=== PATIENT | female | born 1995 | race African-American/Black ===

== ENCOUNTER 2022-07-22 20:30 | Emergency (ER) | payer OTHER ==
[2022-07-22 21:12] VITALS: BP 134/87; PULSE 92; RESP 16; TEMP 99.6; BMI 21.2
[2022-07-22] MEDS ORDERED: SULFAMETHOXAZOLE/TRIMETHOPRIM 800MG/160MG D.S. TABLET PO ONE (23:34)
[2022-07-22] MEDS ORDERED: SULFAMETHOXAZOLE/TRIMETHOPRIM 800MG/160MG D.S. TABLET ONE (23:37)
== END 2022-07-22 23:53 | disposition home or self-care (01) ==
LOC: FER 20:30
DX: L05.91 Pilonidal cyst without abscess (principal)
CPT/HCPCS: 72192-TC; 81025; 99284-25

== ENCOUNTER 2023-10-25 20:40 | Emergency (ER) | payer OTHER ==
[2023-10-25 21:07] VITALS: BP 115/64; PULSE 93; RESP 18; TEMP 98.6; BMI 23.4
[2023-10-25] MEDS ORDERED: ONDANSETRON 4 MG/2 ML VIAL IVPB ONE (21:15)
[2023-10-25] MEDS ORDERED: SODIUM CHLORIDE 1,000 ML IV ONE (21:15)
[2023-10-25] MEDS ORDERED: ONDANSETRON 4 MG/2 ML VIAL ONE (21:18)
[2023-10-25 21:58] LABS: HEMOGLOBIN 10.1 G/dL (10.7-15.3); MCH 21.4 pg (25.7-33.7); MCHC 31.7 g/dl (32.0-36.0); MEAN CELL VOLUME 67.6 fl (80-96); MEAN PLT VOLUME 9.2 fl (7.5-11.1); PLATELET COUNT 403.3 10^3/uL (134-434); RBC 4.73 10^6/uL (3.60-5.2); RDW 23.6 % (11.6-15.6); WHITE BLOOD COUNT 12.7 10^3/uL (4.0-10.8)
[2023-10-25 22:23] LABS: ALBUMIN 4.5 g/dl (3.4-5.0); BILIRUBIN,TOTAL 0.4 mg/dl (0.2-1); CALCIUM 9.2 mg/dl (8.5-10.1); CREATININE 0.6 mg/dl (0.6-1.3); POTASSIUM 4.4 mmol/L (3.5-5.1); TOT PROT 7.5 g/dl (6.4-8.2)
== END 2023-10-25 22:35 | disposition home or self-care (01) ==
LOC: FER 20:40
PROC: 3E033GC Introduction of Other Therapeutic Substance into Peripheral Vein, Percutaneous Approach (ICD-10-PCS; principal; 2023-10-25)
DX: O21.0 Mild hyperemesis gravidarum (principal); O26.891 Other specified pregnancy related conditions, first trimester; R42 Dizziness and giddiness; R00.2 Palpitations; Z3A.01 Less than 8 weeks gestation of pregnancy
CPT/HCPCS: 36415; 80053; 81003; 84703; 85027; 99284-25

== ENCOUNTER 2023-11-26 03:11 | Emergency (ER) | payer OTHER ==
[2023-11-26 03:28] VITALS: BP 113/79; PULSE 146; RESP 18; TEMP 99.9; BMI 22.7
== END 2023-11-26 03:59 | disposition home or self-care (01) ==
LOC: FER 03:11
DX: O99.891 Other specified diseases and conditions complicating pregnancy (principal); M54.50 Low back pain, unspecified; O99.719 Diseases of the skin and subcutaneous tissue complicating pregnancy, unspecified trimester; L05.01 Pilonidal cyst with abscess; Z3A.00 Weeks of gestation of pregnancy not specified
CPT/HCPCS: 99283-25; 99284-25

== ENCOUNTER 2024-01-25 23:09 | Emergency (ER) | payer OTHER ==
[2024-01-25 23:26] VITALS: BP 131/82; PULSE 108; RESP 18; TEMP 99; BMI 25.0
== END 2024-01-25 23:43 | disposition home or self-care (01) ==
LOC: FER 23:09
DX: L05.01 Pilonidal cyst with abscess (principal)
CPT/HCPCS: 99283-25

== ENCOUNTER 2024-06-12 01:45 | Inpatient (IN) | payer OTHER ==
[2024-06-12] MEDS: ELECTROLYTE-148 SOLN 1,000 ML IV SCH (02:30)
[2024-06-12] MEDS ORDERED: ELECTROLYTE-148 SOLN 1,000 ML IV SCH (03:00)
[2024-06-12 03:03] LABS: BASO % 0.2 % (0-2.0); EOS % 1.2 % (0-4.5); HEMATOCRIT 33.5 % (32.4-45.2); HEMOGLOBIN 11.1 GM/dL (10.7-15.3); LYMPH % 13.3 % (8-40); MCH 25.9 pg (25.7-33.7); MEAN CELL VOLUME 78.4 fl (80-96); MEAN PLT VOLUME 9.4 fl (7.5-11.1); MONO % 5.2 % (3.8-10.2); NEUT % 80.1 % (42.8-82.8); PLATELET COUNT 241 10^3/uL (134-434); RBC 4.27 M/mm3 (3.60-5.2); RDW 17.4 % (11.6-15.6); WHITE BLOOD COUNT 13.3 K/mm3 (4.0-10.0)
[2024-06-12 03:10] LABS: INR 0.82 (0.83-1.09); PROTHROMBIN TIME (PATIENT) 9.5 SEC (9.7-13.0)
[2024-06-12 03:13] LABS: ACTIVATED PTT 29.8 SECONDS (25.2-36.5)
[2024-06-12 03:19] VITALS: BMI 32.2
[2024-06-12 03:19] LABS: POTASSIUM 4.2 mmol/L (3.5-5.1)
[2024-06-12 03:21] LABS: CALCIUM 9.2 mg/dL (8.5-10.1)
[2024-06-12 03:22] LABS: ALBUMIN 2.8 g/dl (3.4-5.0); BLOOD UREA NITROGEN 7.1 mg/dL (7-18)
[2024-06-12 03:25] LABS: CREATININE 0.6 mg/dL (0.55-1.3)
[2024-06-12 03:26] LABS: BILIRUBIN,TOTAL 0.2 mg/dL (0.2-1)
[2024-06-12 03:27] LABS: TOT PROT 6.6 g/dl (6.4-8.2)
[2024-06-12] MEDS ORDERED: FENTANYL/BUPIVACAINE/NS/PF - PCEA - 50 ML DISP.SYRIN EP ONE ×4 (03:31→15:21)
[2024-06-12] MEDS: FENTANYL/BUPIVACAINE/NS/PF - PCEA - 50 ML DISP.SYRIN EP SCH (04:15)
[2024-06-12] MEDS ORDERED: NALOXONE HCL 0.4 MG/ML VIAL IVPUSH PRN (04:32)
[2024-06-12] MEDS ORDERED: OXYTOCIN 30 UNITS in 0.9% NS 30 UNIT/500 ML INFUS.BAG IVPB ONE (13:28)
[2024-06-12] MEDS: OXYTOCIN 30 UNITS in 0.9% NS 30 UNIT/500 ML INFUS.BAG IVPB SCH (13:30)
[2024-06-12] MEDS ORDERED: LIDOCAINE HCL 1% PRESERVATIVE FREE - 30ML VIAL ONE (18:38)
[2024-06-12] MEDS ORDERED: OXYTOCIN 20 UNITS in 0.9% NS 20 UNIT/1,000 ML INFUS.BAG IV ONE (18:45)
[2024-06-12] MEDS: OXYTOCIN 20 UNITS in 0.9% NS 20 UNIT/1,000 ML INFUS.BAG IV SCH (19:00)
[2024-06-12 19:17] LABS: CORD BASE EXCESS -1.5 mmol/L (0-2); CORD HCO3 23.4 mmHg (20-29); CORD PCO2 40.5 mmHg (30-78); CORD pH 7.38 (7.14-7.44)
[2024-06-12] MEDS ORDERED: METHYLERGONOVINE MALEATE 0.2 MG/1 ML AMP IM PRN (19:31)
[2024-06-12] MEDS ORDERED: WITCH HAZEL 50% (TUCKS) 40 PAD/JAR PAD TP PRN (19:31)
[2024-06-12] MEDS ORDERED: BISACODYL 10 MG SUPP.RECT RC PRN (19:31)
[2024-06-12] MEDS ORDERED: BENZOCAINE 28 GM HEMORRHOIDAL OINTMENT TP PRN (19:31)
[2024-06-13 09:41] LABS: BASO % 0.5 % (0-2.0); EOS % 0.8 % (0-4.5); HEMATOCRIT 24.3 % (32.4-45.2); HEMOGLOBIN 7.7 GM/dL (10.7-15.3); MCH 25.6 pg (25.7-33.7); MCHC 31.6 g/dl (32.0-36.0); MEAN CELL VOLUME 81.1 fl (80-96); MEAN PLT VOLUME 10.3 fl (7.5-11.1); MONO % 5.7 % (3.8-10.2); PLATELET COUNT 205 10^3/uL (134-434); RBC 2.99 M/mm3 (3.60-5.2); RDW 17.6 % (11.6-15.6); WHITE BLOOD COUNT 16.1 K/mm3 (4.0-10.0)
[2024-06-13] MEDS: IBUPROFEN 600 MG TABLET (FP) PO PRN (11:12)
[2024-06-13] MEDS: IRON SUCROSE INJECTION 300 MG in SODIUM CHLORIDE 235 ML IVPB ONE (16:24)
[2024-06-13] MEDS: ACETAMINOPHEN 325 MG TABLET (FP) PO PRN (18:40)
[2024-06-13] MEDS: SENNOSIDES/DOCUSATE COMBO (SENNA PLUS) TABLET (UD) PO PRN (22:21)
[2024-06-14 07:35] LABS: HEMATOCRIT 21.7 % (32.4-45.2); MCH 25.7 pg (25.7-33.7); MCHC 31.7 g/dl (32.0-36.0); MEAN CELL VOLUME 81.2 fl (80-96); MEAN PLT VOLUME 9.8 fl (7.5-11.1); PLATELET COUNT 202 10^3/uL (134-434); RBC 2.68 M/mm3 (3.60-5.2); RDW 17.9 % (11.6-15.6); WHITE BLOOD COUNT 13.9 K/mm3 (4.0-10.0)
[2024-06-14 08:14] LABS: HEMOGLOBIN 6.9 GM/dL (10.7-15.3)
[2024-06-14] MEDS: FERROUS SO4 325 MG TABLET (FP) PO SCH (10:08)
[2024-06-14] MEDS: PRENATAL VITAMINS W/ FOLIC ACID TABLET (FP) PO SCH (10:08)
[2024-06-15 07:31] LABS: HEMATOCRIT 23.9 % (32.4-45.2); HEMOGLOBIN 7.7 GM/dL (10.7-15.3); MCH 25.9 pg (25.7-33.7); MEAN CELL VOLUME 81.1 fl (80-96); MEAN PLT VOLUME 9.7 fl (7.5-11.1); PLATELET COUNT 242 10^3/uL (134-434); RBC 2.95 M/mm3 (3.60-5.2); RDW 17.6 % (11.6-15.6); WHITE BLOOD COUNT 15.4 K/mm3 (4.0-10.0)
[2024-06-15 10:15] LABS: ANISOCYTOSIS 0; HELMET CELLS 0; HOWELL-JOLLY BODIES 0; MACROCYTOSIS 0; OVALOCYTE 0; ROULEAU 0; SICKELED CELLS 0; TARGET CELLS 0; TEAR DROP CELLS 0; TOXIC GRANULATION 0
[2024-06-15 15:11] VITALS: RESP 18
[2024-06-15] MEDS: BENZOCAINE 20% 57 GM BOTTLE TP PRN (21:50)
[2024-06-16 07:43] LABS: HEMATOCRIT 25.3 % (32.4-45.2); MCH 26.1 pg (25.7-33.7); MCHC 31.8 g/dl (32.0-36.0); MEAN CELL VOLUME 82.3 fl (80-96); MEAN PLT VOLUME 9.7 fl (7.5-11.1); PLATELET COUNT 296 10^3/uL (134-434); RBC 3.07 M/mm3 (3.60-5.2); RDW 17.9 % (11.6-15.6)
[2024-06-16 08:56] LABS: ANISOCYTOSIS 0; MACROCYTOSIS 0
[2024-06-16 08:57] LABS: PLATELET ESTIMATE ADEQUATE
[2024-06-16 10:28] VITALS: BP 118/69; TEMP 98.8
[2024-06-16 11:27] VITALS: PULSE 116
== END 2024-06-16 14:40 | disposition home or self-care (01) | DRG 807 ==
LOC: JLDR 01:45 → J3W 09:20
PROVIDERS: ADMIT Obstetrics & Gynecology; ATTEND Obstetrics & Gynecology
PROC: 10E0XZZ Delivery of Products of Conception, External Approach (ICD-10-PCS; principal; 2024-06-12)
DX: O99.02 Anemia complicating childbirth (principal); Z37.0 Single live birth; D64.9 Anemia, unspecified; O70.1 Second degree perineal laceration during delivery; Z3A.39 39 weeks gestation of pregnancy
CPT/HCPCS: 36415; 36600; 59409; 80053; 82803; 85025; 85027; 85610; 85730; 86780; 86850; 86900; 86901; J1756

== ENCOUNTER 2024-06-21 22:20 | Emergency (ER) | payer OTHER ==
[2024-06-21 22:38] VITALS: BMI 30.7
[2024-06-22] MEDS ORDERED: METOCLOPRAMIDE HCL INJECTION 10 MG/2 ML VIAL ONE (00:28)
[2024-06-22] MEDS ORDERED: ACETAMINOPHEN INJECTION 100 ML ONE (00:43)
[2024-06-22] MEDS: ACETAMINOPHEN 1000 MG/100 ML BAG IVPB ONE (00:52)
[2024-06-22] MEDS: METOCLOPRAMIDE HCL INJECTION 10 MG/2 ML VIAL IVPB ONE (00:52)
[2024-06-22 01:00] LABS: EPI CELLS >36 /uL (0-25.1); HYALINE CASTS 49 /uL (0-3.1); PH,URINE 7.5 (5.0-8.0); URINE APPEARANCE TURBID; URINE BACTERIA 200 /uL (0-1359); URINE BILIRUBIN NEGATIVE (NEGATIVE); URINE COLOR ORANGE; URINE GLUCOSE (UA) NEGATIVE (NEGATIVE); URINE KETONE NEGATIVE (NEGATIVE); URINE LEUK ESTERASE 3+ (NEGATIVE); URINE NITRITE NEGATIVE (NEGATIVE); URINE PROTEIN 2+ (NEGATIVE); URINE RBC 315 /uL (0-23.9); URINE UROBILINOGEN 0.2 mg/dL (0.2-1.0); URINE WBC 3554 /uL (0-25.8)
[2024-06-22 01:02] LABS: BASO % 0.5 % (0-2.0); EOS % 3.2 % (0-4.5); HEMATOCRIT 30.2 % (32.4-45.2); HEMOGLOBIN 9.4 GM/dL (10.7-15.3); LYMPH % 19.3 % (8-40); MCH 25.8 pg (25.7-33.7); MCHC 31.2 g/dl (32.0-36.0); MEAN CELL VOLUME 82.7 fl (80-96); MEAN PLT VOLUME 8.1 fl (7.5-11.1); MONO % 5.5 % (3.8-10.2); NEUT % 71.5 % (42.8-82.8); PLATELET COUNT 570 10^3/uL (134-434); RBC 3.66 M/mm3 (3.60-5.2); RDW 17.9 % (11.6-15.6); WHITE BLOOD COUNT 14.6 K/mm3 (4.0-10.0)
[2024-06-22 01:03] LABS: INR 0.99 (0.83-1.09); PROTHROMBIN TIME (PATIENT) 11.4 SEC (9.7-13.0)
[2024-06-22 01:05] LABS: ACTIVATED PTT 32.7 SECONDS (25.2-36.5)
[2024-06-22 01:23] LABS: POTASSIUM 4.8 mmol/L (3.5-5.1)
[2024-06-22 01:25] LABS: ALBUMIN 3.3 g/dl (3.4-5.0); CALCIUM 9.5 mg/dL (8.5-10.1)
[2024-06-22 01:26] LABS: BLOOD UREA NITROGEN 11.8 mg/dL (7-18)
[2024-06-22 01:28] LABS: CREATININE 0.8 mg/dL (0.55-1.3)
[2024-06-22 01:30] LABS: BILIRUBIN,TOTAL 0.2 mg/dL (0.2-1); TOT PROT 7.5 g/dl (6.4-8.2)
[2024-06-22 02:35] VITALS: BP 130/71; PULSE 96; RESP 20; TEMP 98.5
== END 2024-06-22 02:36 | disposition home or self-care (01) ==
LOC: JER 22:20
PROC: 3E033NZ Introduction of Analgesics, Hypnotics, Sedatives into Peripheral Vein, Percutaneous Approach (ICD-10-PCS; principal; 2024-06-22)
DX: R51.9 Headache, unspecified (principal); N39.0 Urinary tract infection, site not specified; R80.9 Proteinuria, unspecified
CPT/HCPCS: 36415; 80053; 81003; 83735; 85025; 85610; 85730; 93005; 93010; 99284-25; J0131